=== PATIENT | female | born 1965 | race Two or more races ===

== ENCOUNTER 2024-05-24 07:03 | Outpatient (CLI) | payer OTHER | END 2024-05-24 07:15 | disposition home or self-care (01) | LOC: MAMO-SONO 07:03 → SONOGRAMA 07:03 → MAMO-SONO 07:15 | PROVIDERS: ATTEND Obstetrics & Gynecology Gynecology | DX: R10.2 Pelvic and perineal pain (principal); R10.9 Unspecified abdominal pain; N64.59 Other signs and symptoms in breast ==

== ENCOUNTER 2024-06-22 07:38 | Outpatient (CLI) | payer OTHER | END 2024-06-22 07:41 | disposition home or self-care (01) | LOC: SONOGRAMA 07:38 | PROVIDERS: ATTEND Obstetrics & Gynecology Gynecology | DX: N63.0 Unspecified lump in unspecified breast (principal) ==

== ENCOUNTER 2024-08-02 06:22 | Outpatient (CLI) | payer OTHER ==
[2024-08-02 07:31] LABS: HEMATOCRIT 41.7 % (36.0-45.00); HEMOGLOBIN 13.9 g/dL (12.0-15.00); MEAN CORPUSCULAR HGB CONC 33.3 g/dl (32.0-36.0); PLATELET COUNT 266 K/uL (150-450); RED BLOOD COUNT 4.63 M/uL (4.00-6.00); RED CELL DISTRIBUTION WIDTH 13.5 % (11.5-14.5)
[2024-08-02 07:39] LABS: URINE APPEARANCE Clear; URINE BILIRRUBIN Negative (NEGATIVE); URINE BLOOD Large; URINE COLOR Yellow; URINE GLUCOSE Negative (NEGATIVE); URINE KETONE Negative (NEGATIVE); URINE LEUKOCYTE Small; URINE NITRATE Negative; URINE PROTEIN Negative (NEGATIVE); URINE UROBILINOGEN 0.2 E.U./dl
[2024-08-02 07:43] LABS: URINE BACTERIA 110.1 uL (0.0-1933); URINE EPITHELIAL CELLS 27.9 uL (0.0-38.8); URINE RBC 470.7 uL (0.0-20.8); URINE WBC 29.1 uL (0.0-23.2)
[2024-08-02 07:50] LABS: URINE CAST 0.14 uL (0.0-1.40)
[2024-08-02 08:55] LABS: ALBUMIN 3.7 gm/dL (3.4-5.0); BILIRUBIN TOTAL 0.5 mg/dL (0.3-1.2); CALCIUM 8.9 mg/dL (8.5-10.1); CREATININE SERUM 0.49 mg/dL (0.55-1.02); GFR 130.17; GLOBULINA 3.3 G/DL (2.4-3.5); POTASSIUM 3.76 mEq/L (3.5-5.1); T4 TOTAL 7.51 UG/DL (4.8-13.9); TSH 2.37 uIU/mL (0.358-3.74)
[2024-08-02 09:59] LABS: ob NEGATIVE (NEGATIVE)
[2024-08-02 13:38] LABS: T3 TOTAL 1.17 ng/ml (0.846-2.02); VITAMIN D3 25 HYDROXY 15.35 ng/ml (30-120)
== END 2024-08-02 06:30 | disposition home or self-care (01) ==
LOC: LAB 06:22
PROVIDERS: ATTEND Internal Medicine
DX: I10 Essential (primary) hypertension (principal); Z01.810 Encounter for preprocedural cardiovascular examination

== ENCOUNTER 2024-08-02 07:06 | Outpatient (CLI) | payer OTHER | END 2024-08-02 07:09 | disposition home or self-care (01) | LOC: RAD 07:06 | PROVIDERS: ATTEND Internal Medicine | DX: I10 Essential (primary) hypertension (principal); J06.9 Acute upper respiratory infection, unspecified ==

== ENCOUNTER 2024-08-13 11:24 | Outpatient (CLI) | payer OTHER | END 2024-08-13 11:34 | disposition home or self-care (01) | LOC: SONOGRAMA 11:24 | PROVIDERS: ATTEND Internal Medicine | DX: I10 Essential (primary) hypertension (principal); J06.9 Acute upper respiratory infection, unspecified; E03.9 Hypothyroidism, unspecified; N20.0 Calculus of kidney ==

== ENCOUNTER 2024-10-23 06:26 | Outpatient (CLI) | payer OTHER ==
[2024-10-23 07:07] LABS: HEMATOCRIT 41.9 % (36.0-45.00); HEMOGLOBIN 14.4 g/dL (12.0-15.00); MEAN CELL VOLUME 87.9 fL (80.00-100.00); MEAN CORPUSCULAR HEMOGLOBIN 30.2 pg (27.00-32.0); MEAN CORPUSCULAR HGB CONC 34.4 g/dl (32.0-36.0); PLATELET COUNT 224 K/uL (150-450); RED BLOOD COUNT 4.77 M/uL (4.00-6.00); RED CELL DISTRIBUTION WIDTH 13.2 % (11.5-14.5)
[2024-10-23 07:16] LABS: PH,URINE 6.5 (5.0-8.0); URINE APPEARANCE Clear; URINE BILIRRUBIN Negative (NEGATIVE); URINE BLOOD NHT; URINE COLOR Yellow; URINE GLUCOSE Negative (NEGATIVE); URINE KETONE Negative (NEGATIVE); URINE LEUKOCYTE Moderate; URINE NITRATE Negative; URINE PROTEIN Negative (NEGATIVE); URINE UROBILINOGEN 0.2 E.U./dl
[2024-10-23 07:17] LABS: URINE BACTERIA 297.3 uL (0.0-1933); URINE EPITHELIAL CELLS 39.8 uL (0.0-38.8); URINE RBC 25.1 uL (0.0-20.8); URINE WBC 164.2 uL (0.0-23.2)
[2024-10-23 07:32] LABS: ALBUMIN 3.8 gm/dL (3.4-5.0); BILIRUBIN TOTAL 0.62 mg/dL (0.3-1.2); CALCIUM 9.1 mg/dL (8.5-10.1); CHOL HDL RATIO 2.2 (0-5.0); CREATININE SERUM 0.48 mg/dL (0.55-1.02); GFR 132.83; GLOBULINA 3.6 G/DL (2.4-3.5); POTASSIUM 3.9 mEq/L (3.5-5.1); TOTAL PROTEIN 7.4 gm/dL (6.4-8.2)
[2024-10-23 07:52] LABS: TSH 2.77 uIU/mL (0.358-3.74)
[2024-10-23 08:00] LABS: URINE CAST 0.29 uL (0.0-1.40)
== END 2024-10-23 06:28 | disposition home or self-care (01) ==
LOC: LAB 06:26
PROVIDERS: ATTEND Internal Medicine
DX: J06.9 Acute upper respiratory infection, unspecified (principal); I10 Essential (primary) hypertension; E03.9 Hypothyroidism, unspecified; N20.0 Calculus of kidney; E03.8 Other specified hypothyroidism; C73 Malignant neoplasm of thyroid gland

== ENCOUNTER 2024-10-31 07:12 | Outpatient (CLI) | payer OTHER | END 2024-10-31 07:23 | disposition home or self-care (01) | LOC: TOM 07:12 | PROVIDERS: ATTEND Urology | DX: R31.21 Asymptomatic microscopic hematuria (principal) ==

== ENCOUNTER 2024-11-12 08:18 | Outpatient (CLI) | payer OTHER | END 2024-11-12 08:21 | disposition home or self-care (01) | LOC: SONOGRAMA 08:18 | PROVIDERS: ATTEND Pathology Anatomic Pathology | DX: D34 Benign neoplasm of thyroid gland (principal); E06.3 Autoimmune thyroiditis; E04.2 Nontoxic multinodular goiter ==

== ENCOUNTER 2025-03-15 08:26 | Outpatient (CLI) | payer OTHER | END 2025-03-15 08:36 | disposition home or self-care (01) | LOC: MRI 08:26 | PROVIDERS: ATTEND Obstetrics & Gynecology Gynecology | DX: R10.2 Pelvic and perineal pain (principal); R10.9 Unspecified abdominal pain | CPT/HCPCS: 74183 ==

== ENCOUNTER 2025-04-05 07:18 | Outpatient (CLI) | payer OTHER | END 2025-04-05 07:27 | disposition home or self-care (01) | LOC: MRI 07:18 | PROVIDERS: ATTEND Obstetrics & Gynecology Gynecology | DX: R10.2 Pelvic and perineal pain (principal); R10.9 Unspecified abdominal pain | CPT/HCPCS: 72197 ==

== ENCOUNTER 2025-04-20 08:25 | Outpatient (CLI) | payer OTHER ==
[2025-04-20 10:00] LABS: BASO % 0.5 % (0.1-1.2); EOS # 0.23 (0.04-0.54); EOS % 3.7 % (0.7-7.0); LYMPH # 1.15 (1.18-3.74); LYMPH % 18.5 % (19.3-53.1); MEAN PLATELET VOLUME 11.30 fl (9.4-12.4); MONO # 0.46 (0.24-0.82); MONO % 7.4 % (4.7-12.5); NEUT # 4.33 (1.56-6.13); NEUT % 69.6 % (34.0-71.1); RED CELL DISTRIBUTION WIDTH 11.9 % (11.6-14.4)
[2025-04-20 10:09] LABS: URINE APPEARANCE Clear; URINE BILIRRUBIN Negative (NEGATIVE); URINE BLOOD NHT; URINE COLOR Yellow; URINE GLUCOSE Negative (NEGATIVE); URINE KETONE Negative (NEGATIVE); URINE LEUKOCYTE Moderate; URINE NITRATE Negative; URINE PROTEIN Negative (NEGATIVE); URINE UROBILINOGEN 0.2 E.U./dl
[2025-04-20 10:13] LABS: URINE BACTERIA 69.5 uL (0.0-1933); URINE EPITHELIAL CELLS 17.3 uL (0.0-38.8); URINE RBC 12.1 uL (0.0-20.8); URINE WBC 120.7 uL (0.0-23.2)
[2025-04-20 10:42] LABS: ALT/SGPT 45.0 U/L (12-78); AST/SGOT 20.0 U/L (15-37); BILIRUBIN TOTAL 0.64 mg/dL (0.3-1.2); BUN CREA RATIO 20.0 (7.0-25.0); CREATININE SERUM 0.56 mg/dL (0.55-1.02); GFR 111.19; GLOBULINA 3.4 G/DL (2.4-3.5); GLUCOSE FASTING 89.0 mg/dL (65-100); OSMOLALITY SERUM 282.0 MOSM/KG (275-295); T3 UPTAKE 30.0 % (30-39); T4 TOTAL 6.94 UG/DL (4.8-13.9); TSH 2.96 uIU/mL (0.358-3.74)
[2025-04-20 10:43] LABS: URINE CAST 0.00 uL (0.0-1.40)
== END 2025-04-20 08:34 | disposition home or self-care (01) ==
LOC: LAB 08:25
PROVIDERS: ATTEND Internal Medicine
DX: E03.9 Hypothyroidism, unspecified (principal); E04.2 Nontoxic multinodular goiter; N39.0 Urinary tract infection, site not specified; I10 Essential (primary) hypertension; K86.2 Cyst of pancreas